=== PATIENT | male | born 1975 | race Caucasian/White ===

== ENCOUNTER 2021-02-18 18:12 | Observation (INO) | payer SELFPAY ==
[2021-02-18 21:49] LABS: INR 0.94 (0.83-1.09); PROTHROMBIN TIME (PATIENT) 11.6 SEC (9.7-13.0)
[2021-02-18 21:50] LABS: BASO % 0.4 % (0-2.0); EOS % 1.4 % (0-4.5); HEMATOCRIT 38.1 % (35.4-49); HEMOGLOBIN 12.9 GM/dL (11.7-16.9); MCH 30.2 pg (25.7-33.7); MCHC 33.8 g/dl (32.0-35.9); MEAN CELL VOLUME 89.3 fl (80-96); MEAN PLT VOLUME 8.9 fl (7.5-11.1); MONO % 9.6 % (3.8-10.2); NEUT % 62.6 % (42.8-82.8); PLATELET COUNT 354 K/MM3 (134-434); RBC 4.27 M/mm3 (4.00-5.60); RDW 14.7 % (11.9-15.9); WHITE BLOOD COUNT 7.2 K/mm3 (4.0-10.0)
[2021-02-18 21:51] LABS: ACTIVATED PTT 25.6 SECONDS (25.2-36.5)
[2021-02-18 21:54] LABS: CHLORIDE 103 mmol/L (98-107); POTASSIUM 4.6 mmol/L (3.5-5.1); SODIUM 137 mmol/L (136-145)
[2021-02-18 21:56] LABS: ANION GAP 5 MMOL/L (8-16); CO2 30 mmol/L (21-32)
[2021-02-18 21:58] LABS: ALBUMIN 3.9 g/dl (3.4-5.0); CALCIUM 9.3 mg/dL (8.5-10.1); GLUCOSE,RANDOM 92 mg/dL (74-106); MAGNESIUM 2.3 mg/dL (1.8-2.4)
[2021-02-18 21:59] LABS: BLOOD UREA NITROGEN 9.4 mg/dL (7-18)
[2021-02-18 22:01] LABS: CREATININE 0.8 mg/dL (0.55-1.3); SGOT/AST 35 U/L (15-37); SGPT/ALT 19 U/L (13-61)
[2021-02-18 22:02] LABS: ALK PHOS 81 U/L (45-117); BILIRUBIN,TOTAL 0.8 mg/dL (0.2-1); TOT PROT 7.1 g/dl (6.4-8.2)
[2021-02-18] MEDS ORDERED: LACTATED RINGERS SOLUTION 1000 ML INFUS.BAG IV ONE (22:10)
[2021-02-19] MEDS ORDERED: LACTATED RINGERS SOLUTION 1000 ML INFUS.BAG IV ONE (02:17)
[2021-02-19 03:42] LABS: PH,URINE 5.5 (5.0-8.0); URINE APPEARANCE CLEAR; URINE BILIRUBIN NEGATIVE (NEGATIVE); URINE COLOR YELLOW; URINE GLUCOSE (UA) NEGATIVE (NEGATIVE); URINE KETONE NEGATIVE (NEGATIVE); URINE LEUK ESTERASE NEGATIVE (NEGATIVE); URINE NITRITE NEGATIVE (NEGATIVE); URINE PROTEIN NEGATIVE (NEGATIVE); URINE UROBILINOGEN 0.2 mg/dL (0.2-1.0)
[2021-02-19 04:15] LABS: COCAINE, UR NEGATIVE ng/ml (CUTOFF=300); METHADONE, UR NEGATIVE ng/ml (CUTOFF=300); OPIATES, URI NEGATIVE ng/ml (CUTOFF=300); URINE AMPHETAMINES NEGATIVE ng/ml (CUTOFF=500); URINE BENZODIAZEPINES NEGATIVE ng/ml (CUTOFF=200)
[2021-02-19 04:17] LABS: PHENCYCLIDINE,URINE NEGATIVE ng/ml (CUTOFF=25)
[2021-02-19 04:37] LABS: URINE BARBITURATES NEGATIVE ng/ml (CUTOFF=200)
[2021-02-19] MEDS ORDERED: SODIUM CHLORIDE 1,000 ML IV STA (05:26)
[2021-02-19] MEDS ORDERED: FOLIC ACID INJECTION - 1 MG, THIAMINE HCL 100 MG, MULTIVIT INJECTION ADULT 10 ML in SOD... IVPB ONE (05:31)
[2021-02-19] MEDS: HEPARIN NA (PORCINE) 5,000 UNITS/ML 1ML VIAL SQ SCH ×3 (06:49→21:44)
[2021-02-19] MEDS ORDERED: FLU VACCINE (FLULAVAL) PF 60 MCG/0.5 ML SYRINGE 2020-2021 IM ONE (13:36)
[2021-02-19 17:47] VITALS: BMI 22.0
[2021-02-19 18:34] LABS: BASO % 0.7 % (0-2.0); EOS % 1.5 % (0-4.5); HEMATOCRIT 35.5 % (35.4-49); HEMOGLOBIN 11.9 GM/dL (11.7-16.9); LYMPH % 46.7 % (8-40); MCH 30.1 pg (25.7-33.7); MCHC 33.6 g/dl (32.0-35.9); MEAN CELL VOLUME 89.6 fl (80-96); MEAN PLT VOLUME 7.6 fl (7.5-11.1); MONO % 10.3 % (3.8-10.2); NEUT % 40.8 % (42.8-82.8); PLATELET COUNT 261 K/MM3 (134-434); RBC 3.96 M/mm3 (4.00-5.60); RDW 14.7 % (11.9-15.9); WHITE BLOOD COUNT 5.2 K/mm3 (4.0-10.0)
[2021-02-19 18:41] LABS: CALCIUM 8.6 mg/dL (8.5-10.1)
[2021-02-19 18:42] LABS: ALBUMIN 3.2 g/dl (3.4-5.0); BLOOD UREA NITROGEN 8.5 mg/dL (7-18); MAGNESIUM 1.9 mg/dL (1.8-2.4)
[2021-02-19 18:45] LABS: CREATININE 0.7 mg/dL (0.55-1.3)
[2021-02-19 18:46] LABS: BILIRUBIN,TOTAL 0.9 mg/dL (0.2-1); TOT PROT 5.7 g/dl (6.4-8.2)
[2021-02-20] MEDS: HEPARIN NA (PORCINE) 5,000 UNITS/ML 1ML VIAL SQ SCH ×2 (05:15→14:01)
[2021-02-20 08:30] LABS: BASO % 0.5 % (0-2.0); EOS % 1.3 % (0-4.5); HEMATOCRIT 35.2 % (35.4-49); HEMOGLOBIN 11.8 GM/dL (11.7-16.9); LYMPH % 36.5 % (8-40); MCH 30.3 pg (25.7-33.7); MCHC 33.4 g/dl (32.0-35.9); MEAN CELL VOLUME 90.6 fl (80-96); MONO % 9.7 % (3.8-10.2); PLATELET COUNT 246 K/MM3 (134-434); RBC 3.88 M/mm3 (4.00-5.60); RDW 14.4 % (11.9-15.9); WHITE BLOOD COUNT 5.9 K/mm3 (4.0-10.0)
[2021-02-20 08:49] LABS: POTASSIUM 4.1 mmol/L (3.5-5.1)
[2021-02-20 08:55] LABS: CALCIUM 8.7 mg/dL (8.5-10.1)
[2021-02-20 08:56] LABS: ALBUMIN 3.1 g/dl (3.4-5.0); BLOOD UREA NITROGEN 9.8 mg/dL (7-18)
[2021-02-20 08:59] LABS: CREATININE 0.8 mg/dL (0.55-1.3)
[2021-02-20 09:00] LABS: TOT PROT 5.8 g/dl (6.4-8.2)
[2021-02-20 13:52] VITALS: BP 106/56; PULSE 64; TEMP 97.9
== END 2021-02-20 18:03 | disposition home or self-care (01) ==
LOC: JER 18:12 → INTOOBSV 02-19 05:15 → JERBED 02-19 05:15 → J7W 02-19 12:41
PROVIDERS: ADMIT Hospitalist; ATTEND Student in an Organized Health Care Education/Training Program
PROC: 3E023GC Introduction of Other Therapeutic Substance into Muscle, Percutaneous Approach (ICD-10-PCS; principal; 2021-02-19)
PROC: 3E0234Z Introduction of Serum, Toxoid and Vaccine into Muscle, Percutaneous Approach (ICD-10-PCS; 2021-02-19)
PROC: 3E0337Z Introduction of Electrolytic and Water Balance Substance into Peripheral Vein, Percutaneous Approach (ICD-10-PCS; 2021-02-19)
PROC: 3E033GC Introduction of Other Therapeutic Substance into Peripheral Vein, Percutaneous Approach (ICD-10-PCS; 2021-02-19)
DX: G93.41 Metabolic encephalopathy (principal); F10.129 Alcohol abuse with intoxication, unspecified; Z59.0 Homelessness; L53.9 Erythematous condition, unspecified; R79.89 Other specified abnormal findings of blood chemistry; R40.0 Somnolence; Z29.9 Encounter for prophylactic measures, unspecified; R41.0 Disorientation, unspecified; E03.9 Hypothyroidism, unspecified
CPT/HCPCS: 36415; 70450-TC; 71045-TC-FY; 80053; 80307; 81003; 82550; 82553; 82962; 83735; 84100; 84436; 84443; 84484; 85025; 85610; 85730; 87086; 93005; 93010; 99285-25; C9803; G0378; J1644; Q2036; U0003; U0005